=== PATIENT | female | born 1985 | race Caucasian/White ===

== ENCOUNTER 2018-07-23 16:05 | Emergency (ER) | payer OTHER ==
[~2018-07-23] VITALS: Ht 165.1 cm; Wt 72.6 kg
[~2018-07-23 16:05] MED LIST: METHIMAZOLE5 MG PO; MOTRIN800 MG PO; NOR10T PO; PLAQUENIL200 MG PO; PREDNISONE1 MG PO
[2018-07-23 17:56] VITALS: BP 124/77
== END 2018-07-23 17:56 | disposition home or self-care (01) ==
LOC: ED 16:05
DX: R05 Cough (principal); E01.0 Iodine-deficiency related diffuse (endemic) goiter; E05.90 Thyrotoxicosis, unspecified without thyrotoxic crisis or storm; M32.9 Systemic lupus erythematosus, unspecified; R07.89 Other chest pain